=== PATIENT | female | born 1945 | race Caucasian/White ===

== ENCOUNTER 2025-07-03 10:06 | Observation (INO) ==
--- NOTE | 2025-07-03 10:45 | Emergency Department Note ---
Impression & Plan Dizziness, Nausea, Vomiting ED Provider Note CHIEF COMPLAINT: Dizziness HISTORY OF PRESENTING ILLNESS: Patient is a 80-year-old female presents to the emergency department today for complaints of dizziness. She states that on Saturday she went to [place] to have her ear cleaned from a cholesteatoma. During the procedure she had an onset of dizziness that lasted for the day and then resolved. Saturday and she was fine but then on Saturday the dizziness returned. Today when she woke up the dizziness was significantly worse and she had an emesis when she tried to move. She denies any blurred vision, numbness, tingling. She does report a headache that started yesterday. The dizziness is worse when she moves her head but gets better if she sitting up and stay still. She does report trying to take a meclizine this morning but vomited immediately after. She does have a history of "mini" strokes from about 4 years ago that she takes Plavix regularly for. She denies any trauma, falls, injury. She denies chest pain, sob, breathing difficulties, abdominal pain, fevers/chills, blood in stool or urine, any recent illness, or any recent travel. REVIEW OF SYSTEMS: See HPI for pertinent positives and pertinent negatives. ALLERGIES: See below MEDICATIONS: See below PAST MEDICAL HISTORY: See below PHYSICAL EXAM: VITALS: Vitals are noted on the nurse's note and reviewed by myself. GENERAL: Non toxic, in no acute distress, non-diaphoretic. SKIN: Capillary refill <2 sec. EARS: Right ear has no drainage, erythema, or signs of infection. Tympanic membrane is intact. The left ear does have significant buildup from the patient's cholesteatoma. There is no erythema, drainage, bleeding, or other signs of infection. Tympanic membrane is unable to be visualized due to the buildup. EYES: PERRLA. EOMI. Conjunctivae without injection, sclerae without icterus. NOSE: Patent without discharge. MOUTH: Mucous membranes moist. Uvula midline. Airway patent. NECK: Supple without nuchal rigidity. HEART: Regular rate and rhythm without murmurs gallops or rubs. LUNGS: Clear to auscultation bilaterally without wheezes, rales or rhonchi. No retractions or accessory muscle use. ABDOMEN: Positive bowel sounds x 4. Normal tympanic percussion. Soft, nontender to palpation. MUSCULOSKELETAL: No gross musculoskeletal defects. NEURO: Patient was alert and oriented. No focal neurological deficits. DIFFERENTIAL DIAGNOSIS: Vertigo, BPPV, vestibular neuritis, labyrinthitis, Mnire's disease, stroke, MS, brain tumor, migraine, orthostatic hypotension, cardiac arrhythmias, medication use, heart disease, peripheral neuropathy, anxiety, among others. ED COURSE AND MEDICAL DECISION MAKING: HISTORY FROM INDEPENDENT HISTORIAN: History was provided by the patient and her who is at bedside. MONITOR: Continuous equipment monitor phototypesetting: Order was placed for continuous equipment monitor phototypesetting. Patient was placed on the equipment monitor phototypesetting and continuous pulse ox. Patient was noted to be in normal sinus rhythm at an initial rate of 64 bpm per my interpretation. EKG: EKG was interpreted by myself as sinus bradycardia at a rate of 57 bpm. INTERPRETATION OF LABS: I interpreted the labs with full lab results as below in the lab section of this note. Laboratory results pertinent to the emergent complaint are discussed in the MDM section below. The patient was advised to follow up with their PCP and/or specialist(s) for further outpatient monitoring and management of any abnormal results. INTERPRETATION OF IMAGING: Imaging studies were interpreted by myself and read by radiology as per the imaging section of this note. The patient was advised to follow up with their PCP and/or specialist(s) for further outpatient management of any non-emergent abnormal findings. CHRONIC MEDICAL/SOCIAL CONDITIONS AFFECTING CARE: No social concerns were identified as barriers to patients care. ESCALATION OF CARE CONSIDERED: I considered admission on this patient due to the patient's persistent dizziness postprocedure. CONSULTATIONS: I had a meaningful discussion about this patient with Dr. Robledo who agrees with my assessment and the treatment plan. SUMMARY: I examined the patient for complaints of dizziness. A physical exam and history were performed. Nursing notes, EMR, and medication list were personally reviewed. CBC showed no leukocytosis, anemia, thrombocytopenia. CMP showed no emergent findings however a fasting glucose of 106. Troponin was 2.7. PT/INR and APTT were normal. CTA of the head and neck showed no hemorrhage, mass effect, or evidence of acute territorial ischemia. Unremarkable CT angio of the brain and neck.. Patient was given 1 L of normal saline and Zofran 4 mg in the emergency department with improvement in nausea. She declined needing anything for pain medication at this time. She was then given meclizine 25 mg p.o with minor improvement in dizziness. I did discuss with the patient admission versus discharge home. At that time her family had come into the room and wanted to discuss admission due to the patient's persistent dizziness. The patient did get up for road test and was unable to ambulate without getting significantly dizzy. At that time she requested admission. I did speak with Santos Schwartz who accepts the patient for admission to the hospital. 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 Schizophrenia Hypertension Hyperlipidemia Surgical History (Updated 07/03/25 @ 17:59 by Santos Schwartz MD) History of lumbosacral spine surgery age 31 H/O cataract extraction right eye, x 2 Hx of cholecystectomy H/O enucleation of left eyeball 2013 - [facility] Family History (Updated 07/03/25 @ 17:05 by Santos Schwartz MD) Mother , age 64 Diabetes Father , from [place]; age 75 Coronary heart disease Sister Kidney disease Sister Perforated abdominal viscus Social History (Updated 07/03/25 @ 17:07 by Santos Schwartz MD) Smoking Status: Former smoker Smoking End Date: smoked 1 year as teen; Hx Alcohol Use: Yes Alcohol type: other Alcohol Intake Frequency: Monthly or Less Preferred Language: Spanish marital status: Current Living Situation: Spouse current occupational status: retired 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 How many Children do You have: 2 How many Children do You have Comment: daughters Feels Safe at Home: Yes Allergies Allergies Allergy/AdvReac Type Severity Reaction Status Date / Time meperidine [From Demerol] Allergy Intermediate Verified 06/25/25 13:50 NAPROXEN SODIUM (Generic Allergy Y Uncoded 06/25/25 13:49 Allergy) Home Meds Home Medications Medication Instructions Recorded Confirmed clopidogrel 75 mg tablet 75 mg PO DAILY 06/25/25 07/03/25 cranberry extract-vitamin C 250 2 cap PO QPM 06/25/25 07/03/25 mg-60 mg capsule (Azo Cranberry Plus Vit C) cyanocobalamin (vitamin B-12) 1,000 mcg PO DAILY 06/25/25 07/03/25 1,000 mcg capsule folic acid 1 mg tablet 1 mg PO DAILY 06/25/25 07/03/25 furosemide 20 mg tablet 20 mg PO BID 06/25/25 07/03/25 olanzapine 5 mg tablet 5 mg PO DAILY 06/25/25 07/03/25 potassium chloride 10 mEq 10 meq PO BID 06/25/25 07/03/25 tablet,extended release verapamil 240 mg 24 hr 240 mg PO DAILY 06/25/25 07/03/25 capsule,extended release Results & Data (ED) Vital Signs Vital Signs - 24 hr 07/03/25 10:24 07/03/25 10:34 07/03/25 10:34 Temperature 36.6 C Temperature Source Temporal Artery Scan Pulse Rate 63 71 61 Pulse Rate [Apical] Pulse Rate from SpO2 Sensor Pulse Rhythm Regular Pulse Rhythm [Apical] Respiratory Rate 18 21 15 Respiratory Effort / Characteristics Non-Labored Spontaneous Respiratory Depth Normal Respiratory Pattern Regular Blood Pressure 175/87 H 212/90 H Blood Pressure [Right Arm] Blood Pressure Mean 116 108 Blood Pressure Mean [Right Arm] Pulse Oximetry 94 94 94 Oxygen Delivery Method Room Air Room Air Sepsis Recent Fever Within 48 Hours No Sepsis New/Unexplained Change in Mental Status N/A Sepsis Action Taken by Nursing No Action Required 07/03/25 11:00 07/03/25 11:30 07/03/25 12:00 Temperature Temperature Source Pulse Rate 61 64 58 L Pulse Rate [Apical] Pulse Rate from SpO2 Sensor 62 Pulse Rhythm Pulse Rhythm [Apical] Respiratory Rate 16 24 16 Respiratory Effort / Characteristics Respiratory Depth Respiratory Pattern Blood Pressure 188/106 H 171/97 H 172/87 H Blood Pressure [Right Arm] Blood Pressure Mean 133 121 118 Blood Pressure Mean [Right Arm] Pulse Oximetry 96 95 95 Oxygen Delivery Method Sepsis Recent Fever Within 48 Hours Sepsis New/Unexplained Change in Mental Status Sepsis Action Taken by Nursing 07/03/25 12:01 07/03/25 12:39 07/03/25 13:53 Temperature Temperature Source Pulse Rate 59 L 66 Pulse Rate [Apical] 59 L Pulse Rate from SpO2 Sensor 66 Pulse Rhythm Pulse Rhythm [Apical] Respiratory Rate 25 H 20 Respiratory Effort / Characteristics Non-Labored Respiratory Depth Normal Respiratory Pattern Blood Pressure 182/97 H Blood Pressure [Right Arm] 166/98 H Blood Pressure Mean 125 Blood Pressure Mean [Right Arm] 120 Pulse Oximetry 94 92 Oxygen Delivery Method Room Air Sepsis Recent Fever Within 48 Hours Sepsis New/Unexplained Change in Mental Status Sepsis Action Taken by Nursing 07/03/25 14:52 07/03/25 15:06 07/03/25 15:57 Temperature Temperature Source Pulse Rate 59 L 62 Pulse Rate [Apical] 61 Pulse Rate from SpO2 Sensor 59 L 63 Pulse Rhythm Pulse Rhythm [Apical] Regular Respiratory Rate 14 19 18 Respiratory Effort / Characteristics Non-Labored Spontaneous Respiratory Depth Normal Respiratory Pattern Regular Blood Pressure Blood Pressure [Right Arm] 180/79 H Blood Pressure Mean Blood Pressure Mean [Right Arm] 112 Pulse Oximetry 96 94 93 Oxygen Delivery Method Room Air Sepsis Recent Fever Within 48 Hours Sepsis New/Unexplained Change in Mental Status Sepsis Action Taken by Nursing 07/03/25 16:11 Temperature Temperature Source Pulse Rate 64 Pulse Rate [Apical] Pulse Rate from SpO2 Sensor Pulse Rhythm Pulse Rhythm [Apical] Respiratory Rate Respiratory Effort / Characteristics Respiratory Depth Respiratory Pattern Blood Pressure Blood Pressure [Right Arm] Blood Pressure Mean Blood Pressure Mean [Right Arm] Pulse Oximetry Oxygen Delivery Method Sepsis Recent Fever Within 48 Hours Sepsis New/Unexplained Change in Mental Status Sepsis Action Taken by Nursing Laboratory Data 07/03/25 11:54 07/03/25 11:57 Lab Results 07/03/25 07/03/25 07/03/25 Range/Units 11:13 11:54 11:57 WBC Cancelled 7.91 RBC Cancelled 4.43 Hgb Cancelled 13.9 Hct Cancelled 40.8 MCV Cancelled 92.1 MCH Cancelled 31.4 MCHC Cancelled 34.1 RDW Std Deviation Cancelled 44.3 RDW Coeff of Klever Cancelled 13.0 Plt Count Cancelled 268 MPV Cancelled 8.8 L Immature Gran % (Auto) Cancelled 0.3 Neut % (Auto) Cancelled 80.8 Lymph % (Auto) Cancelled 12.5 Eagle % (Auto) Cancelled 5.9 Eos % (Auto) Cancelled 0.1 Baso % (Auto) Cancelled 0.4 Neut # (Auto) Cancelled 6.39 Lymph # (Auto) Cancelled 0.99 L Eagle # (Auto) Cancelled 0.47 Eos # (Auto) Cancelled 0.01 Baso # (Auto) Cancelled 0.03 Immature Gran # (Auto) Cancelled 0.02 Absolute Nucleated RBC Cancelled Nucleated RBC % (auto) Cancelled Neutrophils % (Manual) Cancelled Band Neutrophils % Cancelled Lymphocytes % (Manual) Cancelled Prolymphocyte % Cancelled Reactive Lymphs % (Man) Cancelled Monocytes % (Manual) Cancelled Eosinophils % (Manual) Cancelled Basophils % (Manual) Cancelled Metamyelocytes % (Man) Cancelled Myelocytes % (Man) Cancelled Promyelocytes % (Man) Cancelled Blast Cells % (Manual) Cancelled Plasma Cell % (Manual) Cancelled Other Cells % Cancelled Nucleated RBC % Cancelled Neutrophils # (Manual) Cancelled Band Neutrophils # Cancelled Total Absolute Neuts Cancelled Lymphocytes # (Manual) Cancelled Prolymphocyte # Cancelled Reactive Lymphs # Cancelled Total Abs Lymphocytes Cancelled Monocytes # (Manual) Cancelled Eosinophils # (Manual) Cancelled Basophils # (Manual) Cancelled Metamyelocytes # (Man) Cancelled Myelocytes # (Manual) Cancelled Promyelocytes # (Man) Cancelled Blast Cells # (Man) Cancelled Plasma Cell # (Manual) Cancelled Other Cells # Cancelled Nucleated RBCs # (Man) Cancelled Hypersegmented Neuts Cancelled Hyposegmented Neuts Cancelled Hypogranular Neuts Cancelled Large Granular Lymphs Cancelled # Lrg Granular Lymphs Cancelled Hairy Cells Cancelled Smudge Cells Cancelled Toxic Granulation Cancelled Toxic Vacuolation Cancelled Dohle Bodies Cancelled Alex Rods Cancelled Platelet Estimate Cancelled Hypogranular Platelets Cancelled Giant Platelets Cancelled Platelet Satelliting Cancelled RBC Morphology Cancelled Polychromasia Cancelled Hypochromasia Cancelled Poikilocytosis Cancelled Basophilic Stippling Cancelled Anisocytosis Cancelled Microcytosis Cancelled Macrocytosis Cancelled Spherocytes Cancelled Pappenheimer Bodies Cancelled Sickle Cells Cancelled Target Cells Cancelled Tear Drop Cells Cancelled Ovalocytes Cancelled Stomatocytes Cancelled [place] Bodies Cancelled Echinocytes Cancelled Acanthocytes (Spur) Cancelled Rouleaux Cancelled RBC Agglutinates Cancelled Schistocytes Cancelled Sezary Cell Cancelled PT Cancelled INR Cancelled APTT Cancelled PTT Ratio Cancelled Sodium 139 (136-145) mmol/L Potassium TNP 3.9 Chloride 105 (98-107) mmol/L Carbon Dioxide 27 (21-32) mmol/L Anion Gap 7 (3-11) BUN 17 (6-23) mg/dl Creatinine 1.09 (0.6-1.2) mg/dl Est Cr Clr Drug Dosing 45.0 ml/min eGFR 51.68 BUN/Creatinine Ratio 15.6 (10-20) Glucose 106 H (70-99(Fasting)) mg/dl Calcium 9.2 (8.6-10.3) mg/dl Magnesium 2.0 (1.7-2.4) mg/dl Total Bilirubin 0.6 (0.2-1.0) mg/dl AST TNP 14 ALT 12 (7-52) U/L Alkaline Phosphatase 85 (34-104) U/L Troponin I High Sens 2.7 (0-14) pg/ml Total Protein 6.7 (6.0-8.3) gm/dl Albumin 4.1 (3.4-5.0) gm/dl Globulin 2.6 (2.5-4.0) gm/dl Albumin/Globulin Ratio 1.6 (0.9-2) Urine Color Urine Appearance (Clear) Urine pH (4.5-7.5) Ur Specific [place] (1.000-1.030) Urine Protein (Negative) Urine Glucose (UA) (Negative) Urine Ketones (Negative) Urine Blood (Negative) Urine Nitrite (Negative) Urine Bilirubin (Negative) Urine Urobilinogen (Negative) Ur Leukocyte Esterase (Negative) Urine WBC (Auto) (0-5) /hpf Urine RBC (Auto) (0-2) /hpf U Hyaline Cast (Auto) (0-2) /lpf U Epithel Cells (Auto) (0-2) /hpf Urine Bacteria (Auto) (None Seen) Urine Comment Blood Parasites ID Cancelled 07/03/25 07/03/25 Range/Units 12:30 13:08 WBC RBC Hgb Hct MCV MCH MCHC RDW Std Deviation RDW Coeff of Klever Plt Count MPV Immature Gran % (Auto) Neut % (Auto) Lymph % (Auto) Eagle % (Auto) Eos % (Auto) Baso % (Auto) Neut # (Auto) Lymph # (Auto) Eagle # (Auto) Eos # (Auto) Baso # (Auto) Immature Gran # (Auto) Absolute Nucleated RBC Nucleated RBC % (auto) Neutrophils % (Manual) Band Neutrophils % Lymphocytes % (Manual) Prolymphocyte % Reactive Lymphs % (Man) Monocytes % (Manual) Eosinophils % (Manual) Basophils % (Manual) Metamyelocytes % (Man) Myelocytes % (Man) Promyelocytes % (Man) Blast Cells % (Manual) Plasma Cell % (Manual) Other Cells % Nucleated RBC % Neutrophils # (Manual) Band Neutrophils # Total Absolute Neuts Lymphocytes # (Manual) Prolymphocyte # Reactive Lymphs # Total Abs Lymphocytes Monocytes # (Manual) Eosinophils # (Manual) Basophils # (Manual) Metamyelocytes # (Man) Myelocytes # (Manual) Promyelocytes # (Man) Blast Cells # (Man) Plasma Cell # (Manual) Other Cells # Nucleated RBCs # (Man) Hypersegmented Neuts Hyposegmented Neuts Hypogranular Neuts Large Granular Lymphs # Lrg Granular Lymphs Hairy Cells Smudge Cells Toxic Granulation Toxic Vacuolation Dohle Bodies Alex Rods Platelet Estimate Hypogranular Platelets Giant Platelets Platelet Satelliting RBC Morphology Polychromasia Hypochromasia Poikilocytosis Basophilic Stippling Anisocytosis Microcytosis Macrocytosis Spherocytes Pappenheimer Bodies Sickle Cells Target Cells Tear Drop Cells Ovalocytes Stomatocytes [place] Bodies Echinocytes Acanthocytes (Spur) Rouleaux RBC Agglutinates Schistocytes Sezary Cell PT 10.8 INR 1.0 APTT 24 PTT Ratio 0.9 Sodium (136-145) mmol/L Potassium Chloride (98-107) mmol/L Carbon Dioxide (21-32) mmol/L Anion Gap (3-11) BUN (6-23) mg/dl Creatinine (0.6-1.2) mg/dl Est Cr Clr Drug Dosing ml/min eGFR BUN/Creatinine Ratio (10-20) Glucose (70-99(Fasting)) mg/dl Calcium (8.6-10.3) mg/dl Magnesium (1.7-2.4) mg/dl Total Bilirubin (0.2-1.0) mg/dl AST ALT (7-52) U/L Alkaline Phosphatase (34-104) U/L Troponin I High Sens (0-14) pg/ml Total Protein (6.0-8.3) gm/dl Albumin (3.4-5.0) gm/dl Globulin (2.5-4.0) gm/dl Albumin/Globulin Ratio (0.9-2) Urine Color Yellow Urine Appearance Clear (Clear) Urine pH 7.0 (4.5-7.5) Ur Specific [place] 1.041 H (1.000-1.030) Urine Protein Trace H (Negative) Urine Glucose (UA) Negative (Negative) Urine Ketones Negative (Negative) Urine Blood Negative (Negative) Urine Nitrite Negative (Negative) Urine Bilirubin Negative (Negative) Urine Urobilinogen Negative (Negative) Ur Leukocyte Esterase 1+ H (Negative) Urine WBC (Auto) 11-20 H (0-5) /hpf Urine RBC (Auto) 6-10 H (0-2) /hpf U Hyaline Cast (Auto) 0-2 (0-2) /lpf U Epithel Cells (Auto) 0-2 (0-2) /hpf Urine Bacteria (Auto) None Seen (None Seen) Urine Comment Blood Parasites ID Administered Medications Discontinued Medications Ioversol (Optiray 320 125ml) 118 ml IV ONCE ONE Stop: 07/03/25 12:21 Last Admin: 07/03/25 12:20 Dose: 118 ml Documented By: LOLIS Meclizine HCl (Meclizine Hcl 25 Mg Tab) 25 mg PO NOW STA Stop: 07/03/25 13:26 Last Admin: 07/03/25 13:30 Dose: 25 mg Documented By: REX Ondansetron HCl (Ondansetron Inj 2 Mg/Ml 2 Ml Vial) 4 mg IV NOW STA Stop: 07/03/25 10:46 Last Admin: 07/03/25 11:08 Dose: 4 mg Documented By: REX Imaging Data Radiologist's Impression: Head CT 07/03/25 10:[address] OF THE BRAIN; CT ANGIOGRAM OF THE BRAIN; CT ANGIOGRAM OF THE NECK CLINICAL HISTORY: Dizziness. Stroke like symptoms. COMPARISON STUDY: MRI of the brain dated 11/06/2011. TECHNIQUE: Unenhanced axial CT scan of the brain is performed. Subsequently, following the IV administration of 118 of Optiray 320, CT angiogram of the head and neck was performed from the aortic arch to the vertex. Images are reviewed in the axial, sagittal, and coronal planes. 3-D MIPS images are created and assessed. IV contrast was administered without complication. All measurements were calculated based on NASCET criteria. A dose lowering technique was utilized adhering to the principles of ALARA. CT DOSE: 981.57 mGy.cm FINDINGS: Brain parenchyma: There is age related involutional change noting mild microangiopathic disease. There is no hemorrhage, mass effect, or evidence of acute territorial ischemia by CT criteria. There is no evidence of enhancing mass lesion on the angiogram phase images. The ventricles, sulci, and cisterns are prominent secondary to involutional change. Pruitt-white matter differentiation is preserved. No extra-axial fluid collection is seen. Thoracic aorta: There is mild atherosclerotic calcification of the thoracic. Visualized portions of the thoracic aorta are normal in caliber. The aortic arch demonstrates bovine variant anatomy. Right carotid arterial system: The right common carotid artery is widely patent, as are the right internal and external carotid arteries. Calcified plaque is seen in the carotid bulb. Left carotid arterial system: The left common carotid artery is widely patent, as are the left internal and external carotid arteries. Calcified plaque is seen in the carotid bulb. Vertebral arteries: The left vertebral artery is dominant and widely patent. The right vertebral artery is diminutive heart remains patent. Subclavian arteries: Widely patent bilaterally. Intracranial vasculature: There is atherosclerotic calcification of the cavernous carotid arteries. The internal carotid arteries are patent at the skull base, as are the anterior and middle cerebral arteries bilaterally. The vertebrobasilar system and posterior cerebral arteries are widely patent. The left vertebral artery is dominant. The right vertebral artery is diminutive. There is origin of the left posterior cerebral artery. There is no aneurysm, high-grade stenosis, or focal vessel cut off seen throughout the intracranial circulation. Jugular veins: Patent bilaterally. Dural sinuses: Patent. Lung apices: Partially visualized upper lobe lung parenchyma appears clear. Soft tissues: The visualized pharyngeal soft tissues are normal in appearance noting angiographic phase technique. The oropharyngeal airway appears widely patent. The salivary and thyroid glands are normal in appearance. No cervical lymphadenopathy is seen. Skeletal structures: The skeletal structures are osteopenic. The calvarium appears intact. The cervical spine is maintained noting mild spondylosis. Orbits: The bony orbits are grossly intact. 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 Right orbital contents are normal as imaged noting an ocular lens implant Sinuses and mastoids: Mild mucosal thickening is noted in the right maxillary antrum. The paranasal sinuses are otherwise clear. There is a left mastoid effusion without evidence of canal down left mastoidectomy. The right mastoid air cells are well pneumatized. IMPRESSION: 1. There is no hemorrhage, mass effect, or evidence of acute territorial ischemia by CT criteria. 2. Unremarkable CT angiogram of the brain. 3. Unremarkable CT angiogram of the neck. 4. 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 Correlate with the patient's medical history. ACT 112: Negative or not required by law. Electronically signed by: Blane Howard M.D. 07/03/2025 12:46 PM Neck CTA 07/03/25 10:[address] OF THE BRAIN; CT ANGIOGRAM OF THE BRAIN; CT ANGIOGRAM OF THE NECK CLINICAL HISTORY: Dizziness. Stroke like symptoms. COMPARISON STUDY: MRI of the brain dated 11/06/2011. TECHNIQUE: Unenhanced axial CT scan of the brain is performed. Subsequently, following the IV administration of 118 of Optiray 320, CT angiogram of the head and neck was performed from the aortic arch to the vertex. Images are reviewed in the axial, sagittal, and coronal planes. 3-D MIPS images are created and assessed. IV contrast was administered without complication. All measurements were calculated based on NASCET criteria. A dose lowering technique was utilized adhering to the principles of ALARA. CT DOSE: 981.57 mGy.cm FINDINGS: Brain parenchyma: There is age related involutional change noting mild microangiopathic disease. There is no hemorrhage, mass effect, or evidence of acute territorial ischemia by CT criteria. There is no evidence of enhancing mass lesion on the angiogram phase images. The ventricles, sulci, and cisterns are prominent secondary to involutional change. Pruitt-white matter differentiation is preserved. No extra-axial fluid collection is seen. Thoracic aorta: There is mild atherosclerotic calcification of the thoracic. Visualized portions of the thoracic aorta are normal in caliber. The aortic arch demonstrates bovine variant anatomy. Right carotid arterial system: The right common carotid artery is widely patent, as are the right internal and external carotid arteries. Calcified plaque is seen in the carotid bulb. Left carotid arterial system: The left common carotid artery is widely patent, as are the left internal and external carotid arteries. Calcified plaque is seen in the carotid bulb. Vertebral arteries: The left vertebral artery is dominant and widely patent. The right vertebral artery is diminutive heart remains patent. Subclavian arteries: Widely patent bilaterally. Intracranial vasculature: There is atherosclerotic calcification of the cavernous carotid arteries. The internal carotid arteries are patent at the skull base, as are the anterior and middle cerebral arteries bilaterally. The vertebrobasilar system and posterior cerebral arteries are widely patent. The left vertebral artery is dominant. The right vertebral artery is diminutive. There is origin of the left posterior cerebral artery. There is no aneurysm, high-grade stenosis, or focal vessel cut off seen throughout the intracranial circulation. Jugular veins: Patent bilaterally. Dural sinuses: Patent. Lung apices: Partially visualized upper lobe lung parenchyma appears clear. Soft tissues: The visualized pharyngeal soft tissues are normal in appearance noting angiographic phase technique. The oropharyngeal airway appears widely patent. The salivary and thyroid glands are normal in appearance. No cervical lymphadenopathy is seen. Skeletal structures: The skeletal structures are osteopenic. The calvarium appears intact. The cervical spine is maintained noting mild spondylosis. Orbits: The bony orbits are grossly intact. 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 Right orbital contents are normal as imaged noting an ocular lens implant Sinuses and mastoids: Mild mucosal thickening is noted in the right maxillary antrum. The paranasal sinuses are otherwise clear. There is a left mastoid effusion without evidence of canal down left mastoidectomy. The right mastoid air cells are well pneumatized. IMPRESSION: 1. There is no hemorrhage, mass effect, or evidence of acute territorial ischemia by CT criteria. 2. Unremarkable CT angiogram of the brain. 3. Unremarkable CT angiogram of the neck. 4. 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 Correlate with the patient's medical history. ACT 112: Negative or not required by law. Electronically signed by: Blane Howard M.D. 07/03/2025 12:46 PM Head CTA 07/03/25 10:[address] OF THE BRAIN; CT ANGIOGRAM OF THE BRAIN; CT ANGIOGRAM OF THE NECK CLINICAL HISTORY: Dizziness. Stroke like symptoms. COMPARISON STUDY: MRI of the brain dated 11/06/2011. TECHNIQUE: Unenhanced axial CT scan of the brain is performed. Subsequently, following the IV administration of 118 of Optiray 320, CT angiogram of the head and neck was performed from the aortic arch to the vertex. Images are reviewed in the axial, sagittal, and coronal planes. 3-D MIPS images are created and assessed. IV contrast was administered without complication. All measurements were calculated based on NASCET criteria. A dose lowering technique was utilized adhering to the principles of ALARA. CT DOSE: 981.57 mGy.cm FINDINGS: Brain parenchyma: There is age related involutional change noting mild microangiopathic disease. There is no hemorrhage, mass effect, or evidence of acute territorial ischemia by CT criteria. There is no evidence of enhancing mass lesion on the angiogram phase images. The ventricles, sulci, and cisterns are prominent secondary to involutional change. Pruitt-white matter differentiation is preserved. No extra-axial fluid collection is seen. Thoracic aorta: There is mild atherosclerotic calcification of the thoracic. Visualized portions of the thoracic aorta are normal in caliber. The aortic arch demonstrates bovine variant anatomy. Right carotid arterial system: The right common carotid artery is widely patent, as are the right internal and external carotid arteries. Calcified plaque is seen in the carotid bulb. Left carotid arterial system: The left common carotid artery is widely patent, as are the left internal and external carotid arteries. Calcified plaque is seen in the carotid bulb. Vertebral arteries: The left vertebral artery is dominant and widely patent. The right vertebral artery is diminutive heart remains patent. Subclavian arteries: Widely patent bilaterally. Intracranial vasculature: There is atherosclerotic calcification of the cavernous carotid arteries. The internal carotid arteries are patent at the skull base, as are the anterior and middle cerebral arteries bilaterally. The vertebrobasilar system and posterior cerebral arteries are widely patent. The left vertebral artery is dominant. The right vertebral artery is diminutive. There is origin of the left posterior cerebral artery. There is no aneurysm, high-grade stenosis, or focal vessel cut off seen throughout the intracranial circulation. Jugular veins: Patent bilaterally. Dural sinuses: Patent. Lung apices: Partially visualized upper lobe lung parenchyma appears clear. Soft tissues: The visualized pharyngeal soft tissues are normal in appearance noting angiographic phase technique. The oropharyngeal airway appears widely patent. The salivary and thyroid glands are normal in appearance. No cervical lymphadenopathy is seen. Skeletal structures: The skeletal structures are osteopenic. The calvarium appears intact. The cervical spine is maintained noting mild spondylosis. Orbits: The bony orbits are grossly intact. 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 Right orbital contents are normal as imaged noting an ocular lens implant Sinuses and mastoids: Mild mucosal thickening is noted in the right maxillary antrum. The paranasal sinuses are otherwise clear. There is a left mastoid effusion without evidence of canal down left mastoidectomy. The right mastoid air cells are well pneumatized. IMPRESSION: 1. There is no hemorrhage, mass effect, or evidence of acute territorial ischemia by CT criteria. 2. Unremarkable CT angiogram of the brain. 3. Unremarkable CT angiogram of the neck. 4. 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 Correlate with the patient's medical history. ACT 112: Negative or not required by law. Electronically signed by: Blane Howard M.D. 07/03/2025 12:46 PM Discharge Plan Visit Data Chief Complaint: Dizziness Stated Complaint: L EAR TROUBLE,VOMITING,DIZZY ED Provider: Farida Mcdaniels ED Midlevel Provider: Chrissie Ravi Discharge Problem: Dizziness, Nausea, Vomiting Patient Disposition: Admitted As Inpatient Condition: Good Discharge Instructions Activity Restrictions/Additional Instructions: Your laboratory workup in the emergency department was negative for any acute abnormality. The CT scans of your head and neck were negative for any acute cause for your dizziness. Forms Stand Alone Forms: My [facility] DIIME Prescriptions Prescriptions: No Action cyanocobalamin (vitamin B-12) 1,000 mcg capsule 1,000 mcg PO DAILY Patient Comments: 07/03- otc unable to verify cranberry extract-vitamin C [Azo Cranberry Plus Vit C] 250-60 mg capsule 2 cap PO QPM Patient Comments: 07/03- otc unable to verify verapamil 240 mg capsule,ext rel. pellets 24 hr 240 mg PO DAILY clopidogrel 75 mg tablet 75 mg PO DAILY olanzapine 5 mg tablet 5 mg PO DAILY potassium chloride 10 mEq tablet extended release 10 meq PO BID folic acid 1 mg tablet 1 mg PO DAILY furosemide 20 mg tablet 20 mg PO BID Referrals Referrals: PCP,NO [Physician] - Discharge Problem: Vomiting Qualifiers: Vomiting type: unspecified Nausea presence: with nausea Qualified Code(s): R 11.2 - Nausea with vomiting, unspecified
--- NOTE | 2025-07-03 10:49 | Emergency Department Note ---
ED Visit Note I was consulted by the Advanced Practice Provider, FREDDY Lynn. I performed a substantive portion of the visit. This includes aspects of: History: Patient is a 80-year-old female presenting with dizziness. Patient reports that she had her left ear cleaned out 5 days ago and she has been feeling very dizzy and off balance ever since. She states that yesterday she started to feel very dizzy and had some gait instability secondary to her dizziness. Denies any chest pain or shortness of breath. She did start vomiting this morning. Denies any recent head injuries or chiropractic manipulation of her neck. MDM: - Laboratory workup interpreted by myself showed normal WBC; normal PT/INR; stable electrolytes; normal troponin - CT head wo contrast negative for acute pathology - CTA head/neck negative for acute pathology - UA negative for infection - EKG image reviewed by myself showed normal sinus rhythm. Rate bradycardic at 57 bpm. QT 444. No acute ischemic changes. - Patient given 4 mg IV zofran and 25 mg PO antivert. On reassessment, patient reports feeling improved. Will attempt to ambulate the patient for discharge. - Unfortunately, patient did not pass in a dilatory trial, she became very dizzy and unsteady on her feet. Will admit to hospitalist service for persistent dizziness - Patient to be admitted to the inpatient on any hospital service for further evaluation and management..
[2025-07-03] MEDS: ONDANSETRON INJ 2 MG/ML 2 ML VIAL IV STA (11:08)
[2025-07-03 11:53] LABS: Alanine Aminotransferase 12 U/L (7-52); Albumin Globulin Ratio 1.6 (0.9-2); Alkaline Phosphatase 85 U/L (34-104); Anion Gap 7 (3-11); Bilirubin,Total 0.6 mg/dl (0.2-1.0); Blood Urea Nitrogen 17 mg/dl (6-23); Calcium 9.2 mg/dl (8.6-10.3); Carbon Dioxide 27 mmol/L (21-32); Chloride 105 mmol/L (98-107); Creatinine Clr Calc Pharmacy 45.0 ml/min; Globulin 2.6 gm/dl (2.5-4.0); Glucose 106 mg/dl (70-99(Fasting)); Sodium 139 mmol/L (136-145); Total Protein 6.7 gm/dl (6.0-8.3)
[2025-07-03 12:07] LABS: Hematocrit (blood only) 40.8 % (37.0-47.0); Hemoglobin 13.9 g/dl (12.0-16.0); Immature Granulocytes # (auto) 0.02 K/uL (0.01-0.20); Immature Granulocytes % (auto) 0.3 %; Mean Corpuscular Hemoglobin 31.4 pg (25.0-34.0); Mean Corpuscular Volume 92.1 fL (80.0-100.0); Platelet Count 268 K/uL (130-400); RDW Standard Deviation 44.3 fL (36.4-46.3); Red Blood Count 4.43 M/uL (4.20-5.40); White Blood Count 7.91 K/ul (4.8-10.8)
--- NOTE | 2025-07-03 12:15 | Electrocardiogram Report ---
Test Reason : Blood Pressure : */* mmHG Vent. Rate : 57 BPM Atrial Rate : 57 BPM P-R Int : 152 ms QRS Dur : 74 ms QT Int : 444 ms P-R-T Axes : 46 26 46 degrees QTcB Int : 432 ms Sinus bradycardia Otherwise normal ECG Confirmed by Bora Cavazos ([id number]) on 07/03/2025 12:15:04 PM Referred By: REFERRED SELF Confirmed By: Bora Cavazos
[2025-07-03] MEDS: OPTIRAY 320 125ml IV ONE (12:20)
[2025-07-03 12:26] LABS: Potassium 3.9 mmol/L (3.5-5.1)
--- NOTE | 2025-07-03 12:48 | CT Scan Report ---
UNENHANCED CT OF THE BRAIN; CT ANGIOGRAM OF THE BRAIN; CT ANGIOGRAM OF THE NECK CLINICAL HISTORY: Dizziness. Stroke like symptoms. COMPARISON STUDY: MRI of the brain dated 11/06/2011. TECHNIQUE: Unenhanced axial CT scan of the brain is performed. Subsequently, following the IV adminis tration of 118 of Optiray 320, CT angiogram of the head and neck was performed from the aortic arch t o the vertex. Images are reviewed in the axial, sagittal, and coronal planes. 3-D MIPS images are cre ated and assessed. IV contrast was administered without complication. All measurements were calculate d based on NASCET criteria. A dose lowering technique was utilized adhering to the principles of ALA RA. CT DOSE: 981.57 mGy.cm FINDINGS: Brain parenchyma: There is age related involutional change noting mild microangiopathic disease. Ther e is no hemorrhage, mass effect, or evidence of acute territorial ischemia by CT criteria. There is n o evidence of enhancing mass lesion on the angiogram phase images. The ventricles, sulci, and cistern s are prominent secondary to involutional change. Pruitt-white matter differentiation is preserved. No extra-axial fluid collection is seen. Thoracic aorta: There is mild atherosclerotic calcification of the thoracic. Visualized portions of t he thoracic aorta are normal in caliber. The aortic arch demonstrates bovine variant anatomy. Right carotid arterial system: The right common carotid artery is widely patent, as are the right int ernal and external carotid arteries. Calcified plaque is seen in the carotid bulb. Left carotid arterial system: The left common carotid artery is widely patent, as are the left internal combustion engine inspector al and external carotid arteries. Calcified plaque is seen in the carotid bulb. Vertebral arteries: The left vertebral artery is dominant and widely patent. The right vertebral margo ry is diminutive heart remains patent. Subclavian arteries: Widely patent bilaterally. Intracranial vasculature: There is atherosclerotic calcification of the cavernous carotid arteries. T he internal carotid arteries are patent at the skull base, as are the anterior and middle cerebral ar teries bilaterally. The vertebrobasilar system and posterior cerebral arteries are widely patent. The left vertebral artery is dominant. The right vertebral artery is diminutive. There is origin o f the left posterior cerebral artery. There is no aneurysm, high-grade stenosis, or focal vessel cut off seen throughout the intracranial circulation. Jugular veins: Patent bilaterally. Dural sinuses: Patent. Lung apices: Partially visualized upper lobe lung parenchyma appears clear. Soft tissues: The visualized pharyngeal soft tissues are normal in appearance noting angiographic pha se technique. The oropharyngeal airway appears widely patent. The salivary and thyroid glands are nor mal in appearance. No cervical lymphadenopathy is seen. Skeletal structures: The skeletal structures are osteopenic. The calvarium appears intact. The cervic al spine is maintained noting mild spondylosis. Orbits: The bony orbits are grossly intact. 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 Right orbita l contents are normal as imaged noting an ocular lens implant Sinuses and mastoids: Mild mucosal thickening is noted in the right maxillary antrum. The paranasal s inuses are otherwise clear. There is a left mastoid effusion without evidence of canal down left mast oidectomy. The right mastoid air cells are well pneumatized. IMPRESSION: 1. There is no hemorrhage, mass effect, or evidence of acute territorial ischemia by CT criteria. 2. Unremarkable CT angiogram of the brain. 3. Unremarkable CT angiogram of the neck. 4. 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 Correlate with the patient's medical history. ACT 112: Negative or not required by law. Electronically signed by: Blane Howard M.D. 07/03/2025 12:46 PM
[2025-07-03 13:24] LABS: Appearance Urine Clear (Clear); Bacteria Urine Automated None Seen (None Seen); Cast Urine Automated 0-2 /lpf (0-2); Epithelial Cell Urine Auto 0-2 /hpf (0-2); Glucose Urine UA Negative (Negative)
[2025-07-03] MEDS: MECLIZINE HCL 25 MG TAB PO STA (13:30)
[2025-07-03 13:52] LABS: INR 1.0 (0.9-1.1); Partial Thromboplastin Time 24 Seconds (21-31); Prothrombin Time 10.8 Seconds (9.0-12.0)
[2025-07-03 16:13] VITALS: O2SAT 93
--- NOTE | 2025-07-03 16:41 | History & Physical Report ---
Date of Service July 03, 2025 Assessment & Plan (1) Acute severe vertigo: (2) Cholesteatoma of ear: Plan: left (3) Schizophrenia: (4) Hypertension: (5) Hyperlipidemia: (6) Squamous cell carcinoma of eye: (7) History of TIA (transient ischemic attack): (8) History of left mastoidectomy: Plan 80yo female with cholesteatoma of the left ear - dx about 4 years ago - followed by ENT at [facility]. Complete surgical details are not known but did she have ?mastoidectomy on the left several years ago? She saw ENT in [place] on Saturday to have debris removed from the left ear canal/left TM. During the procedure she developed acute dizziness/vertigo. #acute vertigo, likely peripheral from the left ear - -spoke with Dr Christoph Gomes, on-call ENT -sometimes during cleaning/suctioning of debris from the TM and ear canal this can create irritation of the semi-circular canal -this can then lead to acute vertigo -will schedule meclizine 12.5mg TID and make it also available prn for refractory symptoms -if meclizine is not controlling her symptoms then can use ativan 0.5mg q6h prn -if symptoms are refractory/persist then consider MRI brain to r/o central cause of her symptoms -again, however, her acute vertigo began earlier this week while having the left TM and left ear canal cleaned/suctioned by ENT in [place] -I have consulted Dr Gomes to see Ms Alba in the morning tomorrow #cholesteatoma of left ear - -s/p multiple surgeries per the patient including ?mastoidectomy -follows with [facility] ENT -see above -does not have chronic otorrhea -does have chronic hearing loss, but nothing acute -typically does not have chronic vertigo #uncontrolled HTN - -takes lasix 20mg BID + verapamil 240mg daily -if BPs remain high tonight add losartan 25mg daily -HRs too low for addition of beta evelyn #h/o multiple TIA events but no stroke - -continue plavix for secondary prevention -she denies ever having had a bonafide stroke #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 - -s/p enucleation of left eye, chemo, and 30 radiation treatments #schizophrenia - -continue olanzapine 5mg daily #nausea/emesis - -2nd to her acute vertigo -has resolved for the time being -zofrangelito prn -will give 1 liter of NS overnight; repeat her BMP am -check mag level now #DVT Proph - -defer on chemical means for now as this may be a short observation stay depending on the control of her vertigo pt's counseled on plan of care during the admission process care d/w Dr Gomes, ENT, by phone this evening History of Present Illness Chief Complaint: dizziness, vomiting Primary Care Provider: Abundio De Lóen MD 80yo female with cholesteatoma of the left ear - dx about 4 years ago - followed by ENT at [facility]. About every 6 months she has cleaning of the left ear canal/left TM by ENT. She was in [place] on Saturday to have debris removed from the left ear canal/left TM in normal fashion. During the procedure she developed acute dizziness/vertigo. The symptoms lasted until Saturday am. She was dizzy/vertigo free Saturday and , then woke up Saturday with recurrent dizziness. She describes the vertigo as "everything is moving around me." Saturday am she had nausea, then had vomiting several times today. Movement brings the vertigo on. Vertigo will continue until she assumes a stationary position. No fevers or chills. No cough. Appetite was normal Saturday/. Since her cholesteatoma diagnosis she only had vertigo one other time (early in her diagnosis). This is not a chronic issue for her. Denies chronic drainage from the left ear canal. Does have some mild hearing loss. Allergies Allergy/AdvReac Type Severity Reaction Status Date / Time meperidine [From Demerol] Allergy Intermediate Verified 06/25/25 13:50 NAPROXEN SODIUM (Generic Allergy Y Uncoded 06/25/25 13:49 Allergy) Home Medications Medication Instructions Recorded Confirmed Type clopidogrel 75 mg tablet 75 mg PO DAILY 06/25/25 07/03/25 History cranberry extract-vitamin C 250 2 cap PO QPM 06/25/25 07/03/25 History mg-60 mg capsule (Azo Cranberry Plus Vit C) cyanocobalamin (vitamin B-12) 1,000 mcg PO DAILY 06/25/25 07/03/25 History 1,000 mcg capsule folic acid 1 mg tablet 1 mg PO DAILY 06/25/25 07/03/25 History furosemide 20 mg tablet 20 mg PO BID 06/25/25 07/03/25 History olanzapine 5 mg tablet 5 mg PO DAILY 06/25/25 07/03/25 History potassium chloride 10 mEq 10 meq PO BID 06/25/25 07/03/25 History tablet,extended release verapamil 240 mg 24 hr 240 mg PO DAILY 06/25/25 07/03/25 History capsule,extended release Past Med/Surg History Problem List (Updated 07/03/25 @ 17:59 by Santos Schwartz MD) Acute severe vertigo Vomiting (Acute) Nausea (Acute) Dizziness (Acute) Hematuria Urinary symptom or sign Medical History (Updated 07/03/25 @ 17:59 by Santos Schwartz MD) History of TIA (transient ischemic attack) multiple times, hospitalized [facility] (last ~2016) Nephrolithiasis Squamous cell carcinoma of eye left, 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 left Schizophrenia Hypertension Hyperlipidemia Surgical History (Updated 07/03/25 @ 20:48 by Santos Schwartz MD) History of left mastoidectomy History of lumbosacral spine surgery age 31 H/O cataract extraction right eye, x 2 Hx of cholecystectomy H/O enucleation of left eyeball 2013 - [facility] Family History (Updated 07/03/25 @ 17:05 by Santos Schwartz MD) Mother , age 64 Diabetes Father , from [place]; age 75 Coronary heart disease Sister Kidney disease Sister Perforated abdominal viscus Social History (Updated 07/03/25 @ 17:07 by Santos Schwartz MD) Smoking Status: Never smoker Smoking End Date: smoked 1 year as teen; Second Hand Exposure: No; Do You Dip or Chew Tobacco: No; Tobacco Cessation Education Requested by Patient: No Hx Alcohol Use: Yes Alcohol type: other Alcohol Intake Frequency: Monthly or Less Hx Substance Use: No Preferred Language: [place] Communication Ability: Effective 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 Required: No Beliefs That Will Affect Care: None marital status: Current Living Situation: Spouse current occupational status: retired current occupation: former [employer] How many Children do You have: 2 How many Children do You have Comment: daughters Feels Safe at Home: Yes Safety Concerns: Feels Safe At This Time Assistive Devices: None and Denture - Upper Review of Systems Review of Systems: gen - no fevers or chills, eating well eyes - right eye without diplopia or visual field cuts HENT - occasional runny nose, but no recent URI symptoms, dysphagia, speech impairment; left ear symptoms as above cv - no chest pain pulm - no dyspnea, no cough GI - nausea/vomiting last 24 hours; no abd pain; no diarrhea - no dysuria musculo - no myalgias neuro - no headache endo - no diabetes skin - no rash Physical Exam Physical Exam: gen - NAD, lying comfortably in bed eyes - left eye patch in place; right eye - pupil reactive to light, couple beats of horizontal nystagmus with lateral gaze, but extraocular muscle movement is full HENT - MM slightly dry; right TM clear, normal landmarks; left TM - debris build-up superior-lateral position, mild dry debris in the canal; no otitis externa; no AOM neck - no JVD, no lymph nodes, no goiter heart - RRR, s1 s2, no murmur lungs - CTA b/l abd - soft NT ND BS+ ext - no edema, pulses 2+ b/l neuro - strength 5/5 x 4 exts; DTRs 2+ b/l; CN 3-12 intact; finger/nose/finger maneuver without ataxia psych - a/o x 3 Results & Data Results & Data Vital Signs (Past 12 Hours) Vital Signs Temp Pulse Pulse Resp BP BP Pulse Ox 07/03/25 16:11 64 07/03/25 15:57 62 18 93 07/03/25 15:06 59 L 19 94 07/03/25 14:52 61 14 180/79 H 96 07/03/25 13:53 59 L 20 166/98 H 92 07/03/25 12:39 66 25 H 182/97 H 94 07/03/25 12:01 59 L 07/03/25 12:00 58 L 16 172/87 H 95 07/03/25 11:30 64 24 171/97 H 95 07/03/25 11:00 61 16 188/106 H 96 07/03/25 10:34 61 15 212/90 H 94 07/03/25 10:34 71 21 94 07/03/25 10:24 36.6 C 63 18 175/87 H 94 O2 Del Method 07/03/25 16:11 07/03/25 15:57 07/03/25 15:06 07/03/25 14:52 Room Air 07/03/25 13:53 Room Air 07/03/25 12:39 07/03/25 12:01 07/03/25 12:00 07/03/25 11:30 07/03/25 11:00 07/03/25 10:34 07/03/25 10:34 Room Air 07/03/25 10:24 Room Air Laboratory Results Laboratory Results - last 24 hr 07/03/25 07/03/25 07/03/25 11:13 11:54 11:57 WBC Cancelled 7.91 RBC Cancelled 4.43 Hgb Cancelled 13.9 Hct Cancelled 40.8 MCV Cancelled 92.1 MCH Cancelled 31.4 MCHC Cancelled 34.1 RDW Std Deviation Cancelled 44.3 RDW Coeff of Klever Cancelled 13.0 Plt Count Cancelled 268 MPV Cancelled 8.8 L Immature Gran % (Auto) Cancelled 0.3 Neut % (Auto) Cancelled 80.8 Lymph % (Auto) Cancelled 12.5 Gladwin % (Auto) Cancelled 5.9 Eos % (Auto) Cancelled 0.1 Baso % (Auto) Cancelled 0.4 Neut # (Auto) Cancelled 6.39 Lymph # (Auto) Cancelled 0.99 L Gladwin # (Auto) Cancelled 0.47 Eos # (Auto) Cancelled 0.01 Baso # (Auto) Cancelled 0.03 Immature Gran # (Auto) Cancelled 0.02 Absolute Nucleated RBC Cancelled Nucleated RBC % (auto) Cancelled Neutrophils % (Manual) Cancelled Band Neutrophils % Cancelled Lymphocytes % (Manual) Cancelled Prolymphocyte % Cancelled Reactive Lymphs % (Man) Cancelled Monocytes % (Manual) Cancelled Eosinophils % (Manual) Cancelled Basophils % (Manual) Cancelled Metamyelocytes % (Man) Cancelled Myelocytes % (Man) Cancelled Promyelocytes % (Man) Cancelled Blast Cells % (Manual) Cancelled Plasma Cell % (Manual) Cancelled Other Cells % Cancelled Nucleated RBC % Cancelled Neutrophils # (Manual) Cancelled Band Neutrophils # Cancelled Total Absolute Neuts Cancelled Lymphocytes # (Manual) Cancelled Prolymphocyte # Cancelled Reactive Lymphs # Cancelled Total Abs Lymphocytes Cancelled Monocytes # (Manual) Cancelled Eosinophils # (Manual) Cancelled Basophils # (Manual) Cancelled Metamyelocytes # (Man) Cancelled Myelocytes # (Manual) Cancelled Promyelocytes # (Man) Cancelled Blast Cells # (Man) Cancelled Plasma Cell # (Manual) Cancelled Other Cells # Cancelled Nucleated RBCs # (Man) Cancelled Hypersegmented Neuts Cancelled Hyposegmented Neuts Cancelled Hypogranular Neuts Cancelled Large Granular Lymphs Cancelled # Lrg Granular Lymphs Cancelled Hairy Cells Cancelled Smudge Cells Cancelled Toxic Granulation Cancelled Toxic Vacuolation Cancelled Dohle Bodies Cancelled Alex Rods Cancelled Platelet Estimate Cancelled Hypogranular Platelets Cancelled Giant Platelets Cancelled Platelet Satelliting Cancelled RBC Morphology Cancelled Polychromasia Cancelled Hypochromasia Cancelled Poikilocytosis Cancelled Basophilic Stippling Cancelled Anisocytosis Cancelled Microcytosis Cancelled Macrocytosis Cancelled Spherocytes Cancelled Pappenheimer Bodies Cancelled Sickle Cells Cancelled Target Cells Cancelled Tear Drop Cells Cancelled Ovalocytes Cancelled Stomatocytes Cancelled [place] Bodies Cancelled Echinocytes Cancelled Acanthocytes (Spur) Cancelled Rouleaux Cancelled RBC Agglutinates Cancelled Schistocytes Cancelled Sezary Cell Cancelled PT Cancelled INR Cancelled APTT Cancelled PTT Ratio Cancelled Sodium 139 Potassium TNP 3.9 Chloride 105 Carbon Dioxide 27 Anion Gap 7 BUN 17 Creatinine 1.09 Est Cr Clr Drug Dosing 45.0 eGFR 51.68 BUN/Creatinine Ratio 15.6 Glucose 106 H Calcium 9.2 Total Bilirubin 0.6 AST TNP 14 ALT 12 Alkaline Phosphatase 85 Troponin I High Sens 2.7 Total Protein 6.7 Albumin 4.1 Globulin 2.6 Albumin/Globulin Ratio 1.6 Urine Color Urine Appearance Urine pH Ur Specific [place] Urine Protein Urine Glucose (UA) Urine Ketones Urine Blood Urine Nitrite Urine Bilirubin Urine Urobilinogen Ur Leukocyte Esterase Urine WBC (Auto) Urine RBC (Auto) U Hyaline Cast (Auto) U Epithel Cells (Auto) Urine Bacteria (Auto) Urine Comment Blood Parasites ID Cancelled 07/03/25 07/03/25 12:30 13:08 WBC RBC Hgb Hct MCV MCH MCHC RDW Std Deviation RDW Coeff of Klever Plt Count MPV Immature Gran % (Auto) Neut % (Auto) Lymph % (Auto) Gladwin % (Auto) Eos % (Auto) Baso % (Auto) Neut # (Auto) Lymph # (Auto) Gladwin # (Auto) Eos # (Auto) Baso # (Auto) Immature Gran # (Auto) Absolute Nucleated RBC Nucleated RBC % (auto) Neutrophils % (Manual) Band Neutrophils % Lymphocytes % (Manual) Prolymphocyte % Reactive Lymphs % (Man) Monocytes % (Manual) Eosinophils % (Manual) Basophils % (Manual) Metamyelocytes % (Man) Myelocytes % (Man) Promyelocytes % (Man) Blast Cells % (Manual) Plasma Cell % (Manual) Other Cells % Nucleated RBC % Neutrophils # (Manual) Band Neutrophils # Total Absolute Neuts Lymphocytes # (Manual) Prolymphocyte # Reactive Lymphs # Total Abs Lymphocytes Monocytes # (Manual) Eosinophils # (Manual) Basophils # (Manual) Metamyelocytes # (Man) Myelocytes # (Manual) Promyelocytes # (Man) Blast Cells # (Man) Plasma Cell # (Manual) Other Cells # Nucleated RBCs # (Man) Hypersegmented Neuts Hyposegmented Neuts Hypogranular Neuts Large Granular Lymphs # Lrg Granular Lymphs Hairy Cells Smudge Cells Toxic Granulation Toxic Vacuolation Dohle Bodies Alex Rods Platelet Estimate Hypogranular Platelets Giant Platelets Platelet Satelliting RBC Morphology Polychromasia Hypochromasia Poikilocytosis Basophilic Stippling Anisocytosis Microcytosis Macrocytosis Spherocytes Pappenheimer Bodies Sickle Cells Target Cells Tear Drop Cells Ovalocytes Stomatocytes [place] Bodies Echinocytes Acanthocytes (Spur) Rouleaux RBC Agglutinates Schistocytes Sezary Cell PT 10.8 INR 1.0 APTT 24 PTT Ratio 0.9 Sodium Potassium Chloride Carbon Dioxide Anion Gap BUN Creatinine Est Cr Clr Drug Dosing eGFR BUN/Creatinine Ratio Glucose Calcium Total Bilirubin AST ALT Alkaline Phosphatase Troponin I High Sens Total Protein Albumin Globulin Albumin/Globulin Ratio Urine Color Yellow Urine Appearance Clear Urine pH 7.0 Ur Specific [place] 1.041 H Urine Protein Trace H Urine Glucose (UA) Negative Urine Ketones Negative Urine Blood Negative Urine Nitrite Negative Urine Bilirubin Negative Urine Urobilinogen Negative Ur Leukocyte Esterase 1+ H Urine WBC (Auto) 11-20 H Urine RBC (Auto) 6-10 H U Hyaline Cast (Auto) 0-2 U Epithel Cells (Auto) 0-2 Urine Bacteria (Auto) None Seen Urine Comment Blood Parasites ID Diagnostic Findings Head CT 07/03/25 10:[address] OF THE BRAIN; CT ANGIOGRAM OF THE BRAIN; CT ANGIOGRAM OF THE NECK CLINICAL HISTORY: Dizziness. Stroke like symptoms. COMPARISON STUDY: MRI of the brain dated 11/06/2011. TECHNIQUE: Unenhanced axial CT scan of the brain is performed. Subsequently, following the IV administration of 118 of Optiray 320, CT angiogram of the head and neck was performed from the aortic arch to the vertex. Images are reviewed in the axial, sagittal, and coronal planes. 3-D MIPS images are created and assessed. IV contrast was administered without complication. All measurements were calculated based on NASCET criteria. A dose lowering technique was utilized adhering to the principles of ALARA. CT DOSE: 981.57 mGy.cm FINDINGS: Brain parenchyma: There is age related involutional change noting mild micr oangiopathic disease. There is no hemorrhage, mass effect, or evidence of acute territorial ischemia by CT criteria. There is no evidence of enhancing mass lesion on the angiogram phase images. The ventricles, sulci, and cisterns are prominent secondary to involutional change. Pruitt-white matter differentiation is preserved. No extra-axial fluid collection is seen. Thoracic aorta: There is mild atherosclerotic calcification of the thoracic. Visualized portions of the thoracic aorta are normal in caliber. The aortic arch demonstrates bovine variant anatomy. Right carotid arterial system: The right common carotid artery is widely patent, as are the right internal and external carotid arteries. Calcified plaque is seen in the carotid bulb. Left carotid arterial system: The left common carotid artery is widely patent, as are the left internal and external carotid arteries. Calcified plaque is seen in the carotid bulb. Vertebral arteries: The left vertebral artery is dominant and widely patent. The right vertebral artery is diminutive heart remains patent. Subclavian arteries: Widely patent bilaterally. Intracranial vasculature: There is atherosclerotic calcification of the c avernous carotid arteries. The internal carotid arteries are patent at the skull base, as are the anterior and middle cerebral arteries bilaterally. The vertebrobasilar system and posterior cerebral arteries are widely patent. The left vertebral artery is dominant. The right vertebral artery is diminutive. There is origin of the left posterior cerebral artery. There is no aneurysm, high-grade stenosis, or focal vessel cut off seen throughout the intracranial circulation. Jugular veins: Patent bilaterally. Dural sinuses: Patent. Lung apices: Partially visualized upper lobe lung parenchyma appears clear. Soft tissues: The visualized pharyngeal soft tissues are normal in appearance noting angiographic phase technique. The oropharyngeal airway appears widely patent. The salivary and thyroid glands are normal in appearance. No cervical lymphadenopathy is seen. Skeletal structures: The skeletal structures are osteopenic. The calvarium appears intact. The cervical spine is maintained noting mild spondylosis. Orbits: The bony orbits are grossly intact. 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 Right orbital contents are normal as imaged noting an ocular lens implant Sinuses and mastoids: Mild mucosal thickening is noted in the right maxillary antrum. The paranasal sinuses are otherwise clear. There is a left mastoid effusion without evidence of canal down left mastoidectomy. The right mastoid air cells are well pneumatized. IMPRESSION: 1. There is no hemorrhage, mass effect, or evidence of acute territorial ischemia by CT criteria. 2. Unremarkable CT angiogram of the brain. 3. Unremarkable CT angiogram of the neck. 4. 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 Correlate with the patient's medical history. ACT 112: Negative or not required by law. Electronically signed by: Blane Howard M.D. 07/03/2025 12:46 PM EKG - my reading - NSR, no ST changes Code Status & VTE Plan Code Status full code PG Care Time/CCT Total # of Minutes Spent Total Time Spent with Patient: Total time spent is greater than 50% in coordination of care (as documented) at patient's floor/unit and/or counseling patient: Coding Level of Care Code 83484 INT INP/OBS CARE 3/75MIN Diagnoses Acute severe vertigo R42 Cholesteatoma of ear H71.90 Schizophrenia F20.9 Hypertension I10 Hyperlipidemia E78.5 Squamous cell carcinoma of eye C69.90 History of TIA (transient ischemic attack) Z86.73 History of left mastoidectomy Z90.89
[2025-07-03] MEDS ORDERED: MECLIZINE 12.5 MG TAB PO PRN (17:57)
[2025-07-03 18:32] LABS: Magnesium 2.0 mg/dl (1.7-2.4)
[2025-07-03] MEDS ORDERED: ONDANSETRON INJ 2 MG/ML 2 ML VIAL IV PRN (20:00)
[2025-07-03] MEDS ORDERED: LORazepam 0.5 MG TAB PO PRN (20:00)
[2025-07-03] MEDS ORDERED: MELATONIN 3 MG TAB PO PRN (20:00)
[2025-07-03] MEDS ORDERED: ACETAMINOPHEN 325 MG TAB PO PRN (20:00)
[2025-07-03] MEDS: LOSARTAN POTASSIUM 25 MG TAB PO SCH (21:27)
[2025-07-03] MEDS: SODIUM CHLORIDE 0.9% 1,000 ML IV SCH (21:28)
[2025-07-03] MEDS: MECLIZINE 12.5 MG TAB PO SCH (21:29)
[2025-07-03] MEDS: POTASSIUM CHLORIDE 10 MEQ TABCR PO SCH (21:30)
[2025-07-04 06:58] LABS: Anion Gap 6.0 (3-11); Blood Urea Nitrogen 18.0 mg/dl (6-23); Calcium 8.7 mg/dl (8.6-10.3); Carbon Dioxide 27.0 mmol/L (21-32); Chloride 106.0 mmol/L (98-107); Creatinine Clr Calc Pharmacy 44.9 ml/min; Glucose 93.0 mg/dl (70-99(Fasting)); Potassium 4.2 mmol/L (3.5-5.1); Sodium 139.0 mmol/L (136-145)
[2025-07-04 07:29] VITALS: BP 159/68; PULSE 62; RESP 18; TEMP 97.9
--- NOTE | 2025-07-04 08:50 | ENT Consultation ---
Date of Consultation July 04, 2025 Assessment & Plan (1) Acute severe vertigo: Most likely during cleaning/suctioning of debris from the LEFT Mastoid Bowl created TEMPERATURE CHANGE &irritation of the semi-circular canal - (Lateral Canal) and this is VERY COMMON. - There is NO sign of a "Leak" - NO moisture in the bowl and NO sign of chronic infection as I did NOT see any granulation tissue. So NO recommendation for Otic Drops or Antibiotics. - The CLEANING most likely lead to this acute vertigo episode... which irritated the vestibular nerve and set it off again this weekend. Her HTN history may also be contributing and should resolve in a timely maner. - OK to use meclizine 12.5mg TID and make it also available prn for refractory symptoms - But I would only recommend Meclizine use for 5 days max - and NOT as a chronic medication. -Also - if meclizine is not controlling her symptoms then can use ativan 0.5mg q6h prn while in hospital. -if symptoms are refractory/persist then consider MRI brain to r/o central cause of her symptoms - but she reports feeling much better already this AM. Patient should continue regular LEFT MASTOID CARE follow up with [facility] - but she may find that [facility] will be much more convenient for her LEFT Mastoid Care. IF SO - Would have [facility] follow-up in 6 weeks. (2) Mastoid disorder: STABLE. NO signs of Infection. NO medication treatment necessary. Would KEEP the MASTOID DRY. Patient should continue regular LEFT MASTOID CARE follow up with [facility] - but she may find that follow-up with [facility] will be much more convenient for her LEFT Mastoid Care. IF SO - Would have [facility] follow-up in 6 weeks. History of Present Illness Reason for Consultation: VERTIGO - History of LEFT Cholesteatoma Requesting Physician: Santos Schwartz MD, Attending Physician: Serafin Hendrickson DO History of Present Illness The patient is a 80 yo Female who had her Otolaryngology follow-up on Saturday (29 JUNE 2025) for LEFT Mastoid Bowl cleaning (@ [facility]) and afterward experienced about 24 hours of vertigo. This resolved by the next day - but the Vertigo returned on Saturday ( 02 JUL 2025) evening and persisted yesterday so she was admitted to [facility]. Pateint DENIES any discharge NOR otorrhea from the LEFT ear. Patient has AMBULATED in the ROOM Today and Balance is GOOD. Vertiginous Episode appears to be resolving. Patient had LEFT Mastoidectomy (in 2019?) for the LEFT Cholesteatoma and now has a mature Mastoid bowl. No reports of chronic ear drainage. 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 Hx of HTN - on meds. Allergies Allergy/AdvReac Type Severity Reaction Status Date / Time meperidine [From Demerol] Allergy Intermediate Verified 06/25/25 13:50 NAPROXEN SODIUM (Generic Allergy Y Uncoded 06/25/25 13:49 Allergy) Home Medications Medication Instructions Recorded Confirmed Type clopidogrel 75 mg tablet 75 mg PO DAILY 06/25/25 07/03/25 History cranberry extract-vitamin C 250 2 cap PO QPM 06/25/25 07/03/25 History mg-60 mg capsule (Azo Cranberry Plus Vit C) cyanocobalamin (vitamin B-12) 1,000 mcg PO DAILY 06/25/25 07/03/25 History 1,000 mcg capsule folic acid 1 mg tablet 1 mg PO DAILY 06/25/25 07/03/25 History furosemide 20 mg tablet 20 mg PO BID 06/25/25 07/03/25 History olanzapine 5 mg tablet 5 mg PO DAILY 06/25/25 07/03/25 History potassium chloride 10 mEq 10 meq PO BID 06/25/25 07/03/25 History tablet,extended release verapamil 240 mg 24 hr 240 mg PO DAILY 06/25/25 07/03/25 History capsule,extended release Patient History Medical History Cholesteatoma of ear left History of TIA (transient ischemic attack) multiple times, hospitalized [facility] (last ~2017) Hyperlipidemia Hypertension Nephrolithiasis Schizophrenia Squamous cell carcinoma of eye left, s/p enucleation of eye in 2013 Surgical History H/O cataract extraction right eye, x 2 H/O enucleation of left eyeball 2014 - [facility], [place], operated by [facility] History of left mastoidectomy History of lumbosacral spine surgery age 31 Hx of cholecystectomy Family History Mother , age 64 Diabetes Father , from [place]; age 75 Coronary heart disease Sister Kidney disease Sister Perforated abdominal viscus Social History Smoking Status: Never smoker Smoking End Date: smoked 1 year as teen; Second Hand Exposure: No; Do You Dip or Chew Tobacco: No; Tobacco Cessation Education Requested by Patient: No Hx Alcohol Use: Yes Alcohol type: other Alcohol Intake Frequency: Monthly or Less Hx Substance Use: No Preferred Language: Swedish Communication Ability: Effective Metalizer Required: No Beliefs That Will Affect Care: None marital status: Current Living Situation: Spouse current occupational status: retired current occupation: former [employer] How many Children do You have: 2 How many Children do You have Comment: daughters Feels Safe at Home: Yes Safety Concerns: Feels Safe At This Time Assistive Devices: None and Denture - Upper Review of Systems Review of Systems: As per Admission Hx and HPI. Physical Exam Physical Exam: HEAD: Normocephalic CRANIAL NERVES: CN II - XII Intact - LEFT Eye missing NO Facial Weakness FACE: NO Erythema NO Rash Lips Normal EYES: EOMI (RIGHT Eye only) PERRL (RIGHT Eye only) Ears: External Ears - Normal Ext Aud. Canals - CLEAR Bilateral - NO debris - NO otorrhea - Cerumen minimal Tympanic Membranes - Normal Right Middle Ears - CLEAR Right LEFT MASTOID - Tympanic Membrane is intact - NO perforation. - Mastoid Bowl recently cleaned. Minimal Dry Debris - NO moisture - NO discharge. - at bedside exam - NO granulation tissue seen. NOSE: External Dorsum - NO Deformity Septum - Midline Turbinate - Normal shape & mucosa - NO Polyps MOUTH: Dentition - Lower in Fair Repair - UPPER Edentulous Floor of Mouth - CLEAR. NO Edema Rodessa's Ducts normal Tongue - NO masses - NO Ulcers. OROPHARYNX: Tonsils Normal +1 Uvula Midline NECK: Trachea Midline NO masses NO adenopathy Results & Data Vital Signs (Past 12 Hours) Vital Signs Temp Pulse Pulse Resp BP Pulse Ox O2 Del Method 07/04/25 07:27 36.6 C 62 18 159/68 H 93 Room Air 07/04/25 02:54 36.7 C 66 20 163/80 H 93 Room Air 07/03/25 22:54 36.6 C 63 20 140/80 93 Room Air PG Care Time/CCT Total # of Minutes Spent Total Time Spent with Patient: Total time spent is greater than 50% in coordination of care (as documented) at patient's floor/unit and/or counseling patient: [place] [address] IN/OBS CONSULT LVL 4,60M Patient Type New Medical Decision Making Moderate Complexity Diagnoses Acute severe vertigo R42 Disorder of left mastoid H74.92 Laterality: left (2) Mastoid disorder Laterality: left Qualified Code(s): H74.92 - Unspecified disorder of left middle ear and mastoid
[2025-07-04] MEDS: VERAPAMIL HCL 240 MG TABCR PO SCH (09:18)
[2025-07-04] MEDS: CYANOCOBALAMIN (B-12) 500 MCG TABLET PO SCH (09:18)
[2025-07-04] MEDS: FOLIC ACID 1 MG TAB PO SCH (09:18)
[2025-07-04] MEDS: CLOPIDOGREL BISULFATE 75 MG TAB PO SCH (09:19)
[2025-07-04] MEDS: FUROSEMIDE 20 MG TAB PO SCH (09:20)
--- NOTE | 2025-07-04 12:41 | Discharge Summary ---
Discharge Summary Date of Service July 04, 2025 Principal Dx & Hospital Course #1 = Principal Diagnosis (1) Acute severe vertigo: Plan In summary this is a 80-year-old female who presented to [facility] due to recurrent and persistent vertiginous symptoms after routine canal intervention was made at their print inspector on 06/29. They presented here with persistent difficulties ambulation, nausea and small-volume emesis without hematemesis. Her symptoms have been entirely resolved during the hospitalization, they were able to ambulate independently without significant difficulty. They were evaluated by them and PEG otolaryngology who recommended continued follow-up with their established print inspector or establishing with their office for more convenient care given the patient's home address. Admission HPI Per Admitting Provider 80yo female with cholesteatoma of the left ear - dx about 4 years ago - followed by ENT at [facility]. About every 6 months she has cleaning of the left ear canal/left TM by ENT. She was in [place] on Saturday to have debris removed from the left ear canal/left TM in normal fashion. During the procedure she developed acute dizziness/vertigo. The symptoms lasted until Saturday am. She was dizzy/vertigo free Saturday and , then woke up Saturday am with recurrent dizziness. She describes the vertigo as "everything is moving around me." Saturday am she had nausea, then had vomiting several times today. Movement brings the vertigo on. Vertigo will continue until she assumes a stationary position. No fevers or chills. No cough. Appetite was normal Saturday/. Since her cholesteatoma diagnosis she only had vertigo one other time (early in her diagnosis). This is not a chronic issue for her. Denies chronic drainage from the left ear canal. Does have some mild hearing loss. Discharge Exam General: Elderly female in no acute distress Vital Signs: reviewed HEENT: normocephalic, atraumatic; right pupil is reactive to light, right extraocular motions are intact; left orbital enucleation Pulmonary: symmetric chest wall excursion; CTAB Cardiovascular: Regular rate and rhythm with no murmurs, rubs, or gallops; S1 and S2 normal; bilateral radial and posterior tibial pulses 2+; trace bilateral lower extremity edema distal of the mid leg Gastrointestinal: soft nondistended Neurologic: CN II-XII grossly intact, excluding assessment of the left cranial nerves III, IV, ; no discernible focal weakness nor paresthesias Discharge Plan Discharge Items Patient Disposition: Home - Self-Care Reason For Visit: ACUTE VERTIGO Discharge Diagnosis: Episodic vestibular syndrome Condition on Discharge: Good Activity: Resume your previous activity Non-emergency contact: Primary Care Provider and Specialist Call non-emergency contact if: you have any medication questions and your symptoms worsen Follow-up/Referrals: Abundio De León MD [Primary Care Provider] - (Pt states she will call to make follow up visit) Christoph Gomes MD [Physician] - (Establish care after acute hospitalization) Diet: Regular Fluids: 1800ml (7 cups) Addtl Attending Provider Instructions: Please maintain close follow up with your PCP and specialist providers after discharge from the hospital. Pending Studies at Discharge: No Stand-Alone Forms: My [facility] Medications and DC Order Prescriptions: Continued cyanocobalamin (vitamin B-12) 1,000 mcg capsule 1,000 mcg PO DAILY Patient Comments: 07/03- otc unable to verify cranberry extract-vitamin C [Azo Cranberry Plus Vit C] 250-60 mg capsule 2 cap PO QPM Patient Comments: 07/03- otc unable to verify verapamil 240 mg capsule,ext rel. pellets 24 hr 240 mg PO DAILY clopidogrel 75 mg tablet 75 mg PO DAILY olanzapine 5 mg tablet 5 mg PO DAILY potassium chloride 10 mEq tablet extended release 10 meq PO BID folic acid 1 mg tablet 1 mg PO DAILY furosemide 20 mg tablet 20 mg PO BID Discharge Orders: Discharge Order (Routine); Ordered 07/04/25 Ordered By: Serafin Hendrickson Admission Data Admit Date/Time: 07/03/25 16:41 Attending Provider: Serafin Hendrickson Admit Provider: aSntos Schwartz Primary Care Provider: Abundio De León Other Providers: Christoph Gomes; Santos Schwartz Other Interventions: Discharge Summary Assessment (RN) Last Done: 07/04/25 11:47 Hospital Stay Data Consultations 07/03/25 17:40 ED Decision to Admit Stat 07/03/25 17:55 Consult Otolaryngology (Head and Neck) Routine Diagnostic Imagining Performed 07/03/25 10:45 CT angio neck with con Stat Head CT [CT head/brain wo con] Stat 07/03/25 10:49 CTA head w con [CT angio head w con] Stat Pending Results Patient Have Any Pending Studies at Discharge: No Discharge Instructions Given to Patient (Per Discharging Provider) Please maintain close follow up with your PCP and specialist providers after discharge from the hospital. Total Time Total Time Spent Total Time Spent (In Minutes): 55 Coding Level of Care Code 61712 INP/OBS DISCH >30 MIN Diagnoses Acute severe vertigo R42
== END 2025-07-04 13:02 | disposition home or self-care (01) ==
LOC: ED 10:06 → 2S 10:06 → SUATTDRO 16:41 → 2S 19:27 → UNDODISOB 07-04 12:22